=== PATIENT | female | born 1995 | race Caucasian/White ===

== ENCOUNTER 2019-09-02 16:51 | Emergency (ER) | payer OTHER ==
[~2019-09-02] VITALS: Ht 175.3 cm; Wt 113.4 kg
[~2019-09-02 16:51] MED LIST: AZITHROMYCIN 2250 MG PO
[2019-09-02 17:30] LABS: URINE BILIRUBIN NEGATIVE (Negative); URINE BLOOD 2+ (Negative); URINE CLARITY CLEAR; URINE COLOR YELLOW; URINE GLUCOSE-RANDOM* NEGATIVE (Negative); URINE KETONES NEGATIVE (Negative); URINE LEUKOCYTES-REFLEX TRACE (Negative); URINE NITRITE-REFLEX NEGATIVE (Negative); URINE PROTEIN (DIPSTICK) NEGATIVE (Negative); URINE UROBILINOGEN 0.2 E.U./dl (0.2-1.0)
[2019-09-02 17:38] LABS: SQUAMOUS 4-10 Moderate /LPF (0-3); URINE RBC 3-10 Few /HPF (0-2); URINE WBC-REFLEX 0-5 Rare /HPF (0-5)
[2019-09-02 17:38] LABS: ABSOLUTE NEUTROPHILS 10.1 thou/uL (1.4-8.2); BASOPHILS 0.5 % (0.0-2.0); EOSINOPHILS 0.2 % (0.0-3.0); HEMATOCRIT 45.8 % (37.0-47.0); HEMOGLOBIN 15.1 gm/dL (12.0-15.0); LYMPHOCYTES 9.9 % (24.0-44.0); MCH 29.9 pg (26.0-34.0); MCV 90.5 fL (80.0-100.0); MONOCYTES 5.4 % (1.0-8.0); PLATELET COUNT 325 thou/uL (150-400); RBC 5.06 mil/uL (4.20-5.00); RDW 14.2 % (10.5-14.5)
[2019-09-02 17:39] LABS: BACTERIA-REFLEX >30 Many /HPF (None Seen); CASTS None Seen /LPF (None Seen); CRYSTALS None Seen /LPF (None Seen)
[2019-09-02 17:41] LABS: ANION GAP 7 mmol/L (7-16); BUN 13 mg/dL (7-18); CALCIUM 10.2 mg/dL (8.5-10.1); CHLORIDE 99 mmol/L (98-107); CO2 28 mmol/L (21-32); CREATININE 1.2 mg/dL (0.6-1.0); GLUCOSE 98 mg/dL (74-106); POTASSIUM 3.8 mmol/L (3.5-5.1); SODIUM 134 mmol/L (136-145)
[2019-09-02 17:52] LABS: ALBUMIN 5.2 g/dL (3.4-5.0); SGOT 21 U/L (15-37); SGPT 36 U/L (30-65); TOTAL BILIRUBIN 0.7 mg/dL (<0.1-1.0); TOTAL PROTEIN 9.2 g/dL (6.4-8.2); TROPONIN-I <0.06 ng/mL (<0.06)
[2019-09-02] MEDS ORDERED: KEFLEX500 M1 PO (19:44)
[2019-09-02] MEDS ORDERED: HYDROXYZINE HCL10 M2 PO (19:44)
[2019-09-02 19:50] VITALS: BP 137/74
--- NOTE | 2019-09-03 07:58 | EKG ---
[address] [address] ELECTROCARDIOGRAM REPORT Name: NAHUMBENIGNO MURPHY [facility] [id number] Admission: 09/02/19 Attend Phys: Discharge: 09/02/19 Date of : [birth year] Report #: [id number] THIS REPORT FOR: //name// [facility] ED Test Date: 2019-09-02 Test Time: 16:53:56 Pat Name: BENIGNO SIDHU Department: Room: Gender: F Senior Care Provider: VERÓNICA : 1995 Requested By: Marianne Herr Order Number: [id number] MD: Ilir Osorio Measurements Intervals [place] Rate: 94 P: 41 MA: 153 QRS: 22 QRSD: 98 T: 21 QT: 354 QTc: 443 Interpretive Statements Sinus rhythm No previous ECG available for comparison Electronically Signed On 09-03-2019 7:58:07 [employer] by Ilir Osorio [email or web address] <ELECTRONICALLY SIGNED> By: Ilir Osorio MD 09/03/19 [id number] Ilir Osorio MD /DERIC
== END 2019-09-02 19:55 | disposition home or self-care (01) ==
LOC: ER 16:51
PROVIDERS: Nurse Practitioner Family
DX: E86.0 Dehydration (principal); F41.9 Anxiety disorder, unspecified; N39.0 Urinary tract infection, site not specified; R06.00 Dyspnea, unspecified; F17.210 Nicotine dependence, cigarettes, uncomplicated